=== PATIENT | male | born 1995 | race African-American/Black ===

== ENCOUNTER 2019-03-01 03:02 | Emergency (ER) | payer MEDICAID ==
[~2019-03-01] VITALS: Ht 175.3 cm; Wt 95.3 kg
[~2019-03-01 03:02] MED LIST: NKM
[2019-03-01] MEDS ORDERED: NKM (03:07)
[2019-03-01] MEDS ORDERED: HYDROcodone/Acetamin 5/325 tab ORAL ONE (03:15)
--- NOTE | 2019-03-01 03:16 | Emergency Room Report ---
History of Present Illness General Chief Complaint: Upper Extremity Injury Source: Patient Present Illness [facility] This is a 23-year-old male who is left-hand dominant. He presents with chief complaint of right hand pain. About 3 hours prior to arrival he punched a wall. He complained of pain over the fourth and fifth knuckle. Worse with movement. Worse with palpation. Pain is 8 out of 10. No other injury. No wrist pain. Allergies: Coded Allergies: No Known Allergies (Unverified , 09/23/13) Patient History Past Medical History: see triage record, old chart reviewed Past Surgical History: none Pertinent Family History: none Social History: Denies: smoking Immunizations: other Reviewed Nursing Documentation: PMH: Agreed; PSxH: Agreed Nursing Documentation-PMH Past Medical History: No Stated History Review of Systems Eye: Denies: eye pain, blurred vision ENT: Denies: ear pain, nose congestion, throat swelling Respiratory: Denies: cough, shortness of breath Cardiovascular: Denies: chest pain, palpitations Gastrointestinal: Denies: abdominal pain, diarrhea, nausea, vomiting Musculoskeletal: Reports: joint pain; Denies: back pain Skin: Denies: rash Neurological: Denies: headache, numbness Endocrine: Denies: increased thirst, increased urine Hematologic/Lymphatic: Denies: easy bruising All Other Systems: negative except mentioned in HPI Physical Exam Vital Signs Date Time Temp Pulse Resp B/P (MAP) Pulse Ox O2 Delivery O2 Flow Rate FiO2 03/01/19 03:04 98.1 65 18 131/81 (98) 100 Room Air Vitals normal Sp02 EP Interpretation: reviewed, normal General Appearance: well appearing, no apparent distress, alert Head: normocephalic, atraumatic Eyes: bilateral eye PERRL, bilateral eye EOMI ENT: hearing grossly normal, normal pharynx Neck: full range of motion, supple, no meningismus Respiratory: chest non-tender, lungs clear, normal breath sounds Cardiovascular #1: regular rate, rhythm, no murmur Gastrointestinal: normal bowel sounds, non tender, no mass, no organomegaly, no bruit, non-distended Musculoskeletal: back normal, gait/station normal, normal range of motion, other - Rt Hand: Tenderness over the fourth and fifth MCP joint. No malrotation. Psychiatric: mood/affect normal Procedures Splinting Splinting : Consent: Verbal Location: Hand the right Pre-Made Type: velcro Splint: volar Pre-Proc Neuro Vasc Exam: normal Post-Proc Neuro Vasc Exam: normal Patient Tolerated: Well Complications: None Medical Decision Making Diagnostic Impression: Primary Impression: Contusion of hand, right Qualified Codes: S60.221A - Contusion of right hand, initial encounter ER Course Patient with a hand contusion. No fracture dislocation. Will discharge home. Other X-Ray Diagnostic Results Other X-Ray Diagnostic Results : X-Ray ordered: Hand x-rays, right # of Views/Limited Vs Complete: 3 View Indication: Pain EP Interpretation: Yes Interpretation: no dislocation, no soft tissue swelling, no fractures Impression: No acute disease Electronically Signed by: Camron Hunt MD Last Vital Signs Date Time Temp Pulse Resp B/P (MAP) Pulse Ox O2 Delivery O2 Flow Rate FiO2 03/01/19 03:04 98.1 65 18 131/81 (98) 100 Room Air Status: improved Disposition: HOME, SELF-CARE Condition: Stable Scripts Ibuprofen* (MOTRIN*) 600 Mg Tablet 600 MG ORAL THREE TIMES A DAY, #30 TAB 0 Refills Prov: Camron Hunt MD 03/01/19 Additional Instructions: Follow-up with your doctor in 7 days. Return if symptoms worsen. Camron Hunt MD Mar 01, 2019 03:16
[2019-03-01 03:25] VITALS: BP 131/81
--- NOTE | 2019-03-01 03:26 | NUR ---
ER Nurse Note: Pt came form home c/o RT hand reyes and swelling d/t punching a wall at 0000 03/01. Pt stated he cannot move his 4th and 5th finger. RT hand swollen, cap refill less than 3 secs. Pt able to move wrist with no difficutly. Pt can move fingers with discomfort. Ice pack given; all orders completed per ERMD orders. Awaiting x-ray results. Will continue to [facility].
[2019-03-01] MEDS ORDERED: IBUPROFEN600 MG ORAL (03:34)
[2019-03-01 03:38] VITALS: BP 131/81
--- NOTE | 2019-03-01 03:38 | NUR ---
ER Nurse Note: Pt seen, treated, medically cleared for discharge by ERMD. Discharge instuctions and prescriptions given with repeat verbalization by pt. Emphasized to follow up with primay care provider; take whole course of medication. Explained each medication. All orders completed per ERMD orders. Pt a&ox4, VSS, no signs of distress. ID band removed. Brace applied by information technology teacher. All questions answered per pt's questions. Pt left with all belongings, left with own transportation.
--- NOTE | 2019-03-01 04:11 | Diagnostic Imaging Report ---
EXAM: XR Right Hand Complete, 3 or More Views CLINICAL HISTORY: TRAUMA TECHNIQUE: Frontal, lateral and oblique views of the right hand. COMPARISON: No relevant prior studies available. FINDINGS: Bones/joints: No acute fracture. No dislocation. Soft tissues: Unremarkable. No radiopaque foreign body. IMPRESSION: No acute findings.
== END 2019-03-01 03:38 | disposition home or self-care (01) ==
LOC: EMR 03:19
DX: S60.221A Contusion of right hand, initial encounter (principal); W22.8XXA Striking against or struck by other objects, initial encounter; Y92.9 Unspecified place or not applicable
CPT/HCPCS: 29125; 99283